=== PATIENT | male | born 1945 | race Caucasian/White ===

== ENCOUNTER 2020-06-18 10:30 | Outpatient (REF) | payer OTHER, SELFPAY ==
[2020-06-18 12:52] LABS: Hematocrit 48.3 % (42-52); Mean Corpuscular HGB Conc 33.1 g/dl (31.0-36.0); Mean Corpuscular Hemoglobin 28.8 pg (27.0-33.0); Mean Corpuscular Volume 86.9 fL (80-98); Mean Platelet Volume 11.5 fL (9.4-12.4); Platelet Count 271 X10*3/uL (160-400); Red Blood Count 5.56 X10*6/uL (4.60-5.80); Red Cell Distribution Width 13.4 % (11.0-16.0); White Blood Count 10.3 X10*3/uL (4.8-10.8)
[2020-06-18 14:12] LABS: Alanine Aminotransferase 14 U/L (0-40); Albumin Level 4.1 g/dL (3.5-5.0); Alkaline Phosphatase 88 U/L (39-117); Anion Gap 15 (12-20); Aspartate Amino Transferase 16 U/L (5-37); Bilirubin Total 0.8 mg/dL (0.0-1.0); Blood Urea Nitrogen 14 mg/dL (9-16); Calcium 9.4 mg/dL (8.4-10.2); Carbon Dioxide 36 mmol/L (22-29); Chloride 95 mmol/L (96-108); Cholesterol 202 mg/dL; Estimated Glomerular Filt Rate > 60; Glucose Fasting 94 mg/dL (60-99); HDL Cholesterol 56 mg/dL; LDL Cholesterol Calculated 127 mg/dl; Potassium 3.7 mmol/l (3.3-5.1); Sodium 142 mmol/L (135-145); Total Protein 7.2 g/dL (6.5-8.0); Triglycerides 98 mg/dL
[2020-06-18 14:44] LABS: Prostate Specific Antigen 10.49 ng/mL (<0.05-4.0)
== END 2020-06-18 10:31 | disposition home or self-care (01) ==
LOC: HO.MANLDS 10:30
PROVIDERS: PCP Internal Medicine; Visit Provider Internal Medicine
DX: E78.5 Hyperlipidemia, unspecified (principal)
CPT/HCPCS: 36415; 80053; 80061; 84153; 85027

== ENCOUNTER 2020-11-26 09:43 | Outpatient (REF) | payer OTHER, SELFPAY ==
[2020-11-26 12:00] LABS: PSA,Total (Free>4and<10) 2.06 ng/mL (0.00-4.00)
== END 2020-11-26 09:44 | disposition home or self-care (01) ==
LOC: HO.MANLDS 09:43
PROVIDERS: PCP Internal Medicine; Visit Provider Internal Medicine
DX: Z12.5 Encounter for screening for malignant neoplasm of prostate (principal); R97.20 Elevated prostate specific antigen [PSA]
CPT/HCPCS: 36415; 84153; 84154

== ENCOUNTER 2022-12-22 11:50 | Outpatient (REF) | payer OTHER, SELFPAY ==
[2022-12-22 13:59] LABS: MANUAL DIFF FLAG NO
[2022-12-22 14:10] LABS: Basophils Absolute Auto 0.1 X10*3/uL (0.0-0.2); Basophils Percent Auto 1.1 % (0-2); Eosinophils Absolute Auto 0.2 X10*3/uL (0.0-0.4); Eosinophils Percent Auto 2.3 % (0-4); Hematocrit 50.7 % (42.0-52.0); Hemoglobin 17.3 g/dl (14.0-18.0); Imm Gran Abs Auto 0.03 X10*3/uL (0.00-0.03); Imm Gran Pct Auto 0.3 % (0.0-0.4); Lymphocytes Absolute Auto 2.3 X10*3/uL (1.2-4.9); Lymphocytes Percent Auto 23.8 % (20-40); Mean Corpuscular HGB Conc 34.1 g/dl (31.0-36.0); Mean Corpuscular Volume 87.9 fL (80.0-98.0); Mean Platelet Volume 10.5 fL (9.4-12.4); Monocytes Percent Auto 10.5 % (2-11); Neutrophils Absolute Auto 5.9 x10*3/uL (2.0-8.3); Platelet Count 305 X10*3/uL (160-400); Red Blood Count 5.77 X10*6/uL (4.60-5.80); Red Cell Distribution Width 12.5 % (11.0-16.0); White Blood Count 9.5 X10*3/uL (4.8-10.8)
[2022-12-22 14:53] LABS: Alanine Aminotransferase 17 U/L (0-40); Albumin Level 4.1 g/dL (3.5-5.0); Alkaline Phosphatase 83 U/L (39-117); Anion Gap 16 (12-20); Aspartate Amino Transferase 21 U/L (5-37); Bilirubin Total 1.2 mg/dL (0.0-1.0); Blood Urea Nitrogen 13 mg/dL (9-16); Calcium 10.1 mg/dL (8.4-10.2); Carbon Dioxide 34 mmol/L (22-29); Chloride 93 mmol/L (96-108); Estimated Glomerular Filt Rate > 60; Glucose Random 95 mg/dL (60-115); Potassium 4.9 mmol/L (3.3-5.1); Sodium 138 mmol/L (135-145); Total Protein 7.5 g/dL (6.5-8.0)
[2022-12-22 15:10] LABS: Prostate Specific Antigen 2.41 ng/mL (<0.05-4.0)
== END 2022-12-22 11:51 | disposition home or self-care (01) ==
LOC: HO.MANLDS 11:50
PROVIDERS: Visit Provider Internal Medicine
DX: I10 Essential (primary) hypertension (principal); Z12.5 Encounter for screening for malignant neoplasm of prostate
CPT/HCPCS: 36415; 80053; 84153; 85025